=== PATIENT | male | born 1990 | race Caucasian/White ===

== ENCOUNTER → 2019-09-08 | Outpatient (CLI) | payer BC ==
--- NOTE | 2019-09-08 14:51 | RADIOLOGY REPORT (SQ) ---
EXAM DESCRIPTION: CT ABD/PELVIS WITH IV ORAL IMAGES COMPLETED DATE/TIME: 09/08/2019 2:34 pm REASON FOR STUDY: (R10.30)LOWER ABDOMINAL PAIN, UNSPECIFIED R10.30 LOWER ABDOMINAL PAIN, UNSPECIFIE D COMPARISON: None. TECHNIQUE: CT scan of the abdomen and pelvis performed with intravenous and oral contrast using tracy latricia scanning technique with dynamic intravenous contrast injection. Images reviewed with lung, soft t issue, and bone windows. Reconstructed coronal and sagittal MPR images reviewed. Delayed images for e valuation of the urinary system also acquired. All images stored on PACS. All CT scanners at this facility use dose modulation, iterative reconstruction, and/or weight based d osing when appropriate to reduce radiation dose to as low as reasonably achievable (ALARA). [facility]: Dose Right [facility]: CareDose [facility]: Dose Right [facility]: Teradose 4D [facility]: iSpye CONTRAST TYPE AND DOSE: contrast/concentration: Isovue 350.00 mg/ml; Total Contrast Delivered: 100.0 ml; Total Saline Delivered: 72.0 ml RENAL FUNCTION: None required. The patient is less than 50 years old. RADIATION DOSE: CT Rad equipment meets quality standard of care and radiation dose reduction techniq ues were employed. CTDIvol: 13.8 - 13.9 mGy. DLP: 1518 mGy-cm.. LIMITATIONS: None. FINDINGS: LOWER CHEST: No significant findings. No nodules or infiltrates. LIVER: Diffusely fatty. SPLEEN: Normal size. No focal lesions. PANCREAS: No masses. No significant calcifications. No adjacent inflammation or peripancreatic fluid collections. Pancreatic duct not dilated. GALLBLADDER: No identified stones by CT criteria. No inflammatory changes to suggest cholecystitis. ADRENAL GLANDS: No significant masses or asymmetry. RIGHT KIDNEY AND URETER: No solid masses. No significant calcification. No hydronephrosis or hydroure ter. LEFT KIDNEY AND URETER: No solid masses. No significant calcification. No hydronephrosis or hydrouret er. AORTA AND VESSELS: No aneurysm. No dissection. Renal arteries, SMA, celiac without stenosis. RETROPERITONEUM: No retroperitoneal adenopathy, hemorrhage or masses. BOWEL AND PERITONEAL CAVITY: No obstruction. No visualized masses. No free fluid. No inflammatory ch anges or thickening of bowel wall. APPENDIX: Normal. PELVIS: No significant masses. Normal bladder. No free fluid. ABDOMINAL WALL: No masses. No hernias. BONES: No significant or acute findings. OTHER: No other significant finding. IMPRESSION: 1. Hepatic steatosis. 2. No acute or suspicious abdominopelvic abnormality. Otherwise normal study. TECHNICAL DOCUMENTATION: JOB ID: [id number] Quality ID # [id number]: Final reports with documentation of one or more dose reduction techniques (e.g., Au tomated exposure control, adjustment of the mA and/or kV according to patient size, use of iterative reconstruction technique) 2010 [employer]- All Rights Reserved Reading location - IP/workstation name: [email or web address]
== END ==
LOC: RAD 13:55
PROVIDERS: ATTEND Nurse Practitioner Family
DX: R10.30 Lower abdominal pain, unspecified (principal); K76.0 Fatty (change of) liver, not elsewhere classified
CPT/HCPCS: 74177; 82565